=== PATIENT | male | born 1950 | race Caucasian/White ===

== ENCOUNTER 2016-09-21 13:36 | Inpatient (IN) | payer MEDICARE, OTHER ==
[2016-09-21] MEDS ORDERED: SODIUM CHLORIDE IV (13:45)
[2016-09-21] MEDS ORDERED: ZOLOFT100 M1 PO (13:46)
[2016-09-21] MEDS ORDERED: LOPRESSOR50 M1 PO (13:46)
[2016-09-21] MEDS ORDERED: CULTURELLE1 EAC1 PO (13:46)
[2016-09-21] MEDS ORDERED: PIPERACIL-TA3.375 G1 IV (13:47)
[2016-09-21] MEDS ORDERED: AMITRIPTYLINE H50 M1 PO ×2 (13:48)
[2016-09-21] MEDS ORDERED: GABAPENTIN250 MG/51 PO (13:49)
[2016-09-21] MEDS ORDERED: SEROQUEL25 M2 PO ×2 (13:49→13:53)
[2016-09-21] MEDS ORDERED: MUCINEX600 M1 PO (13:49)
[2016-09-21] MEDS ORDERED: CUBICIN RF500 MG IV (13:50)
[2016-09-21] MEDS ORDERED: GLUCAGEN1 MG IM (13:51)
[2016-09-21] MEDS ORDERED: DEXTROSE 525 GM/501 IV (13:51)
[2016-09-21] MEDS ORDERED: IPRAT-ALBUT 0.5-3 ML INH (13:52)
[2016-09-21] MEDS ORDERED: GLUCOSE4 GM CH (13:52)
[2016-09-21] MEDS ORDERED: PROTONIX40 M2 PO (13:53)
[2016-09-21] MEDS ORDERED: SYNTHROID0.2 MG/TAB PO (13:53)
[2016-09-21] MEDS ORDERED: DULCOLAX5 M1 PO (13:53)
[2016-09-21] MEDS ORDERED: MELATONIN3 M4 PO (13:53)
[2016-09-21] MEDS ORDERED: PROGRAF1 M1 PO (13:54)
[2016-09-21] MEDS ORDERED: TYLENOL325 M2 PO (13:54)
[2016-09-21] MEDS ORDERED: MILK OF MAGNESIA PO (13:55)
[2016-09-21] MEDS ORDERED: BISCOLAX10 MG PR (13:55)
[2016-09-21] MEDS ORDERED: ENEMEEZ283 MG/5 M PR (13:55)
[2016-09-21] MEDS ORDERED: NORMAL SALINE FL2 ML IV ×2 (13:56→14:02)
[2016-09-21] MEDS ORDERED: ALBUTEROL2.5 MG/3 M INH (13:57)
[2016-09-21] MEDS ORDERED: AMOXICILLIN250 M1 PO (13:57)
[2016-09-21] MEDS ORDERED: LOPERAMIDE2 M2 PO (13:58)
[2016-09-21] MEDS ORDERED: NICOTINE PATCH1 EAC1 TD (13:58)
[2016-09-21] MEDS ORDERED: TUSSIN100 MG/52 PO (13:58)
[2016-09-21] MEDS ORDERED: LASIX20 M1 PO (13:59)
[2016-09-21] MEDS ORDERED: PRINIVIL20 M1 PO (13:59)
[2016-09-21] MEDS ORDERED: ROXICODONE5 M2 PO (13:59)
[2016-09-21] MEDS ORDERED: LANTUS SOL100 UNIT/1 SC (13:59)
[2016-09-21 14:00] LABS: ABG CO2 ARTERIAL 22 mmol/L (21-27); ARTERIAL BLD GAS O2 SATURATION 98 % (95-98); ARTERIAL BLOOD GAS PCO2 37 mmHg (32-45); ARTERIAL PO2 92 mmHg (70-100); BICARBONATE 21 mmol/L (21-28); BLOOD GAS BASE EXCESS -3 mM/L (-/+3); PH 7.38 Units (7.35-7.45)
[2016-09-21] MEDS ORDERED: POTASSIUM CHLO10 ME2 PO (14:00)
[2016-09-21] MEDS ORDERED: ASPIRIN EC81 MG PO (14:00)
[2016-09-21] MEDS ORDERED: NOVOLOG FL100 UNIT/2 SC (14:02)
[2016-09-21 14:16] LABS: BASO % 0.4 % (0-2); BASO ABSOLUTE COUNT 0.1 tho/cmm (0.0-0.2); EOS % 0.1 % (0-7); HCT-HEMATOCRIT 23.6 % (36.0-53.5); HGB-HEMOGLOBIN 7.3 gm/dl (13.5-17.0); IMMATURE GRANULOCYTES ABSOLUTE 0.08 tho/cmm (0-0.03); IMMATURE GRANULOCYTES PERCENT 0.4 % (0-0.3); LYMPH % 3.9 % (20-45); LYMPH ABSOLUTE COUNT 0.7 tho/cmm (0.8-4.5); MCH (MEAN CORPUSCULAR HGB) 26.2 pg (28.0-32.0); MCHC MEAN CORPUSCULAR HGB CONC 30.9 % (32.0-36.0); MCV (MEAN CELL VOLUME) 84.6 fl (82.0-96.0); MEAN PLATELET VOLUME 9.1 cmc (9.4-12.4); MONO % 5.8 % (0-12); MONOCYTE ABSOLUTE COUNT 1.1 tho/cmm (0.0-1.2); NEUTROPHIL ABSOLUTE COUNT 16.4 tho/cmm (1.6-8.0); NEUTROPHIL-AUTOMATED 16.4 tho/cmm (1.6-8.0); NEUTROPHILS % 89.4 % (40-80); PLATELET COUNT 689 tho/cmm (150-450); RED BLOOD COUNT 2.79 mil/cmm (4.40-5.70); RED CELL DISTRIBUTION WIDTH 17.9 % (12.4-16.4); WHITE BLOOD COUNT 18.3 tho/cmm (4.0-10.0)
[2016-09-21 14:40] LABS: ANION GAP 16 mmol/L (0-20); BLOOD UREA NITROGEN 58 mg/dl (6-24); CALCIUM 8.3 mg/dl (8.5-10.5); CARBON DIOXIDE-VENOUS 21 mmol/L (22-32); CHLORIDE 106 mmol/l (96-110); CREATININE 1.77 mg/dl (0.60-1.30); GLUCOSE 232 mg/dL (70-110); SODIUM 136 mmol/L (135-145); eGFR VALUE FOR BLACK 45 mL/Min
[2016-09-21 14:42] LABS: INR 1.3 INR (0.9-1.1); PROTHROMBIN TIME 15.1 SECONDS (9.0-13.6)
[2016-09-21 14:43] LABS: POTASSIUM 6.5 mmol/L (3.7-5.1)
[2016-09-21 15:35] LABS: URINE APPEARANCE HAZY; URINE BILIRUBIN NEGATIVE (NEG); URINE BLOOD LARGE (NEG); URINE COLOR YELLOW; URINE GLUCOSE (UA) NEGATIVE (NEG); URINE KETONE NEGATIVE (NEG); URINE LEUKOCYTE ESTERASE POSITIVE (NEG); URINE NITRITE NEGATIVE (NEG); URINE PROTEIN MODERATE (NEG)
[2016-09-21 15:40] LABS: URINE RBC FULL FIELD /[HPF] (0-5)
[2016-09-21 15:41] LABS: URINE AMORPHOUS 2+
[2016-09-22 05:10] LABS: BASO % 0.9 % (0-2); BASO ABSOLUTE COUNT 0.2 tho/cmm (0.0-0.2); EOS % 1.4 % (0-7); EOSINOPHIL ABSOLUTE COUNT 0.2 tho/cmm (0.0-0.7); HGB-HEMOGLOBIN 6.4 gm/dl (13.5-17.0); IMMATURE GRANULOCYTES ABSOLUTE 0.06 tho/cmm (0-0.03); IMMATURE GRANULOCYTES PERCENT 0.4 % (0-0.3); LYMPH % 7.3 % (20-45); LYMPH ABSOLUTE COUNT 1.2 tho/cmm (0.8-4.5); MCH (MEAN CORPUSCULAR HGB) 26.4 pg (28.0-32.0); MCV (MEAN CELL VOLUME) 82.6 fl (82.0-96.0); MEAN PLATELET VOLUME 9.3 cmc (9.4-12.4); MONO % 8.3 % (0-12); MONOCYTE ABSOLUTE COUNT 1.4 tho/cmm (0.0-1.2); NEUTROPHIL ABSOLUTE COUNT 13.9 tho/cmm (1.6-8.0); NEUTROPHIL-AUTOMATED 13.9 tho/cmm (1.6-8.0); NEUTROPHILS % 81.7 % (40-80); PLATELET COUNT 681 tho/cmm (150-450); RED BLOOD COUNT 2.42 mil/cmm (4.40-5.70); RED CELL DISTRIBUTION WIDTH 17.9 % (12.4-16.4); WHITE BLOOD COUNT 16.9 tho/cmm (4.0-10.0)
[2016-09-22 05:22] LABS: ABG CO2 ARTERIAL 26 mmol/L (21-27); ARTERIAL BLD GAS O2 SATURATION 91 % (95-98); ARTERIAL BLOOD GAS PCO2 38 mmHg (32-45); BICARBONATE 25 mmol/L (21-28); BLOOD GAS BASE EXCESS 1 mM/L (-/+3); PH 7.44 Units (7.35-7.45)
[2016-09-22 05:39] LABS: ARTERIAL PO2 61 mmHg (70-100)
[2016-09-22 05:46] LABS: CHLORIDE 104 mmol/l (96-110); SODIUM 138 mmol/L (135-145)
[2016-09-22 05:54] LABS: BLOOD UREA NITROGEN 57 mg/dl (6-24); CALCIUM 8.5 mg/dl (8.5-10.5); CARBON DIOXIDE-VENOUS 23 mmol/L (22-32); CREATININE 1.63 mg/dl (0.60-1.30); eGFR VALUE FOR BLACK 50 mL/Min
[2016-09-22 06:14] LABS: ANION GAP 16 mmol/L (0-20); POTASSIUM 5.4 mmol/L (3.7-5.1)
[2016-09-22 06:15] LABS: GLUCOSE 98 mg/dL (70-110)
[2016-09-22 15:15] LABS: ANION GAP 13 mmol/L (0-20); BLOOD UREA NITROGEN 57 mg/dl (6-24); CALCIUM 8.4 mg/dl (8.5-10.5); CARBON DIOXIDE-VENOUS 25 mmol/L (22-32); CHLORIDE 103 mmol/l (96-110); CREATININE 1.61 mg/dl (0.60-1.30); GLUCOSE 116 mg/dL (70-110); POTASSIUM 5.3 mmol/L (3.7-5.1); SODIUM 136 mmol/L (135-145); eGFR VALUE FOR BLACK 51 mL/Min
--- NOTE | 2016-09-22 15:22 | NUR ---
NOTIFIED DR DAHL ABOUT LOW HGB AND NO NEW ORDERS AT THIS TIME. PATIENT IS NOT SYMPTOMATIC
[2016-09-23 03:28] LABS: BASO % 1.8 % (0-2); BASO ABSOLUTE COUNT 0.2 tho/cmm (0.0-0.2); EOS % 4.8 % (0-7); EOSINOPHIL ABSOLUTE COUNT 0.6 tho/cmm (0.0-0.7); HGB-HEMOGLOBIN 6.3 gm/dl (13.5-17.0); IMMATURE GRANULOCYTES ABSOLUTE 0.03 tho/cmm (0-0.03); IMMATURE GRANULOCYTES PERCENT 0.2 % (0-0.3); LYMPH % 8.9 % (20-45); LYMPH ABSOLUTE COUNT 1.1 tho/cmm (0.8-4.5); MCH (MEAN CORPUSCULAR HGB) 26.8 pg (28.0-32.0); MCV (MEAN CELL VOLUME) 83.8 fl (82.0-96.0); MEAN PLATELET VOLUME 8.8 cmc (9.4-12.4); MONO % 9.3 % (0-12); MONOCYTE ABSOLUTE COUNT 1.2 tho/cmm (0.0-1.2); NEUTROPHIL ABSOLUTE COUNT 9.3 tho/cmm (1.6-8.0); NEUTROPHIL-AUTOMATED 9.3 tho/cmm (1.6-8.0); PLATELET COUNT 594 tho/cmm (150-450); RED BLOOD COUNT 2.35 mil/cmm (4.40-5.70); RED CELL DISTRIBUTION WIDTH 17.4 % (12.4-16.4); WHITE BLOOD COUNT 12.4 tho/cmm (4.0-10.0)
[2016-09-23 03:44] LABS: HCT-HEMATOCRIT 19.7 % (36.0-53.5)
[2016-09-23 04:11] LABS: ALB/GLOB RATIO 0.3 (0.8-2.0); ALBUMIN 1.8 g/dl (3.5-5.0); ALKALINE PHOSPHATASE 145 U/L (33-138); ALT/SGPT 42 U/L (12-78); ANION GAP 14 mmol/L (0-20); AST/SGOT 33 U/L (10-40); BILIRUBIN,TOTAL 0.4 mg/dl (0.0-1.5); BLOOD UREA NITROGEN 53 mg/dl (6-24); C-REACTIVE PROTEIN 12.8 mg/dl (0-0.9); CALCIUM 8.5 mg/dl (8.5-10.5); CARBON DIOXIDE-VENOUS 26 mmol/L (22-32); CHLORIDE 105 mmol/l (96-110); CREATININE 1.55 mg/dl (0.60-1.30); PHOSPHOROUS 5.3 mg/dl (2.5-4.9); POTASSIUM 5.2 mmol/L (3.7-5.1); PREALBUMIN 12.8 mg/dl (20.0-40.0); SODIUM 140 mmol/L (135-145); eGFR VALUE FOR BLACK 53 mL/Min
[2016-09-23 04:39] LABS: GLUCOSE 65 mg/dL (70-110)
== END 2016-09-23 11:30 | disposition other institution (70) | DRG 177 ==
LOC: EDMED 13:36 → EMR2 17:23 → CCU 18:03
PROVIDERS: Emergency Medicine; Internal Medicine Infectious Disease; ADMIT Internal Medicine
PROC: 30233N1 Transfusion of Nonautologous Red Blood Cells into Peripheral Vein, Percutaneous Approach (ICD-10-PCS; principal; 2016-09-22)
PROC: 5A09357 Assistance with Respiratory Ventilation, Less than 24 Consecutive Hours, Continuous Positive Airway Pressure (ICD-10-PCS; 2016-09-22)
DX: J85.1 Abscess of lung with pneumonia (principal); J96.01 Acute respiratory failure with hypoxia; G93.40 Encephalopathy, unspecified; I50.23 Acute on chronic systolic (congestive) heart failure; N17.9 Acute kidney failure, unspecified; Z94.4 Liver transplant status; E11.9 Type 2 diabetes mellitus without complications; D63.8 Anemia in other chronic diseases classified elsewhere; D64.9 Anemia, unspecified; I25.10 Atherosclerotic heart disease of native coronary artery without angina pectoris; Z95.1 Presence of aortocoronary bypass graft; Z95.2 Presence of prosthetic heart valve; E87.5 Hyperkalemia; Z86.73 Personal history of transient ischemic attack (TIA), and cerebral infarction without residual deficits; Z95.0 Presence of cardiac pacemaker; I11.0 Hypertensive heart disease with heart failure; Z85.05 Personal history of malignant neoplasm of liver; K21.9 Gastro-esophageal reflux disease without esophagitis; Z79.4 Long term (current) use of insulin; Z86.19 Personal history of other infectious and parasitic diseases; I27.2 Other secondary pulmonary hypertension; F17.210 Nicotine dependence, cigarettes, uncomplicated; Z66 Do not resuscitate; L40.9 Psoriasis, unspecified; Z88.8 Allergy status to other drugs, medicaments and biological substances; Z91.040 Latex allergy status; Z79.82 Long term (current) use of aspirin; F32.9 Major depressive disorder, single episode, unspecified; Y95 Nosocomial condition; Z86.14 Personal history of Methicillin resistant Staphylococcus aureus infection; E78.5 Hyperlipidemia, unspecified; E89.0 Postprocedural hypothyroidism; J44.9 Chronic obstructive pulmonary disease, unspecified; Z87.898 Personal history of other specified conditions
CPT/HCPCS: J0610; J1170; J1650; J1815; J1940; J2060; J2270; J2405; J2543; J3370; J7030; J7050; J7507; P9016